=== PATIENT | female | born 1965 | race Caucasian/White ===

== ENCOUNTER 2017-11-03 10:58 | Emergency (ER) | payer SELFPAY ==
--- NOTE | 2017-11-03 11:55 | ER Document Report ---
ED Psych Disorder / Suicide <GOLDEN MORE - Last Filed: 11/03/17 14:51> - General Mode of Arrival: Ambulatory Information source: Patient, Relative TRAVEL OUTSIDE OF THE U.S. IN LAST 30 DAYS: No <KHADRA DEVINE - Last Filed: 11/03/17 20:36> - General Chief Complaint: Suicidal Ideation Stated Complaint: PYSCH EVALUATION Time Seen by Provider: 11/03/17 11:43 Notes: This 52-year-old female patient presents emergency room with a three-week history of depression and suicidal ideations. She reports she feels like everything is caving in on her. She has thought about running her vehicle off the road, wrecking into a truck or other violent ways to kill herself. She moved to this area in December 2016. Last episode she had like this was over a year ago in [place]. She was seen by psychiatry and put on medications and counseling but she said they did not seem to help. She has been on no medication for over a year. (KHADRA DEVINE) - Related Data Allergies/Adverse Reactions: No Known Allergies Allergy (Unverified 11/03/17 11:00) Past Medical History - General Information source: Patient, Relative - Social History Smoking Status: Current Every Day Smoker Cigarette use (# per day): Yes - Probably has a 28-94-wowt-year history at this time Chew tobacco use (# tins/day): No Smoking Education Provided: No Frequency of alcohol use: Drinks by herself at least 3 times a week consuming 8 beers per session Drug Abuse: None Occupation: Unemployed Lives with: Spouse/Significant other Family History: Reviewed & Not Pertinent Patient has suicidal ideation: Yes Patient has homicidal ideation: No Pulmonary Medical History: Reports: Hx COPD - Possible dx of COPD, she does admit to wheezing when she gets URI's Psychiatric Medical History: Reports: Hx Depression Past Surgical History: Reports: Hx Tonsillectomy, Hx Tubal Ligation <KHADRA DEVINE - Last Filed: 11/03/17 20:36> Review of Systems - Review of Systems Constitutional: No symptoms reported EENT: No symptoms reported Cardiovascular: No symptoms reported Respiratory: No symptoms reported Gastrointestinal: No symptoms reported Genitourinary: No symptoms reported Female Genitourinary: Post menopausal Musculoskeletal: No symptoms reported Skin: No symptoms reported Hematologic/Lymphatic: No symptoms reported Neurological/Psychological: Depression, Suicidal ideation <KHADRA DEVINE - Last Filed: 11/03/17 20:36> Physical Exam - Vital signs Interpretation: Hypertensive - General General appearance: Appears well, Alert In distress: None - HEENT Head: Normocephalic, Atraumatic Eyes: Normal Pupils: PERRL Neck: Normal - Respiratory Respiratory status: No respiratory distress Breath sounds: Normal - Cardiovascular Rhythm: Regular Heart sounds: Normal auscultation Murmur: No - Abdominal Inspection: Obese Bowel sounds: Normal Tenderness: Nontender - Back Back: Other - Does seem to be developing some kyphosis in the thoracic spine - Extremities General upper extremity: Normal inspection General lower extremity: Normal inspection - Neurological Neuro grossly intact: Yes - Psychological Associated symptoms: Depressed, Tearful - When discussing the reasons for the worsening of her symptoms - Skin Skin Temperature: Warm Skin Moisture: Dry Skin Color: Normal <KHADRA DEVINE - Last Filed: 11/03/17 20:36> - Vital signs Vitals: Temp Pulse Resp BP Pulse Ox 98.1 F 89 16 151/90 H 96 11/03/17 11:12 11/03/17 11:12 11/03/17 11:12 11/03/17 11:12 11/03/17 11:12 Course - Laboratory Result Diagrams: 11/03/17 11:55 11/03/17 11:55 <GOLDEN MORE - Last Filed: 11/03/17 14:51> - Laboratory Result Diagrams: 11/03/17 11:55 11/03/17 11:55 <KHADRA DEVINE - Last Filed: 11/03/17 20:36> - Vital Signs Vital signs: Temp Pulse Resp BP Pulse Ox 97.6 F 80 16 131/83 H 98 11/03/17 15:15 11/03/17 15:15 11/03/17 15:15 11/03/17 15:15 11/03/17 15:15 - Laboratory Laboratory results interpreted by ny: 11/03/17 11:55 Salicylates < 1.0 L Acetaminophen < 10 L Discharge <GOLDEN MORE - Last Filed: 11/03/17 14:51> <KHADRA DEVINE - Last Filed: 11/03/17 20:36> - Discharge Clinical Impression: Suicidal ideation Depression Qualifiers: Depression Type: unspecified Qualified Code(s): F32.9 - Major depressive disorder, single episode, unspecified Condition: Stable Disposition: HOME, SELF-CARE Additional Instructions: DEPRESSION: Your evaluation reveals that you have mental depression. While symptoms may be vague, they often include disturbance of sleep, fatigue, loss of appetite , and general loss of interest in life. While depression may be a side effect of drugs, or a reaction to a major change in your life, many cases have no known cause. If depression is acute, and related to a major loss in your life, you can expect it to clear completely with time. If you have been depressed a long time , are prone to repeated bouts of depression or low mood, or have been thinking of suicide, get help. Depression can be treated with anti-depressant medication and counselling. Long-term depression will often take a few weeks to clear, even with appropriate medication. Follow-up care is important. SUICIDAL IDEATION: Suicidal ideation is a common medical term for thoughts about suicide, which may be as detailed as a formulated plan, without the suicidal act itself. Although most people who undergo suicidal ideation do not commit suicide, some go on to make suicide attempts. The range of suicidal ideation varies greatly from fleeting to detailed planning, role playing, and unsuccessful attempts. While thoughts about suicide are common, most people do not carry out serious actions to commit suicide. Based upon your evaluation and discussion with you, we do not believe you are currently at risk to act upon your thoughts of suicide. You have agreed to return to the Emergency Department, at any time , if you feel inclined to act upon your suicidal thoughts. FOLLOW-UP CARE: You have been given a list of community providers, to include a referral to [facility], to establish care of your mental health and medication management needs. The list also includes contact information for [facility] services in the event of an imminent need. If you experience worsening or a significant change in your symptoms, notify the physician immediately or return to the Emergency Department at any time for re-evaluation. Prescriptions: Buspirone HCl [Buspar 5 mg Tablet] 1 tab PO BID #14 tab Citalopram Hydrobromide [Celexa 20 mg Tablet] 20 mg PO DAILY #7 tablet Referrals: [facility] [Provider Group] - Follow up as needed
[2017-11-03 12:26] LABS: ABSOLUTE EOSINOPHILS # (AUTO) 0.1 10^3/uL (0.0-0.6); ABSOLUTE LYMPHOCYTES (AUTO) 2.4 10^3/uL (0.5-4.7); ABSOLUTE MONOCYTES (AUTO) 0.6 10^3/uL (0.1-1.4); ABSOLUTE NEUT (AUTO) 5.8 10^3/uL (1.7-8.2); BASOPHILS % (AUTO) 0.5 % (0-2); EOSINOPHILS % (AUTO) 1.4 % (0-6); HEMATOCRIT 36.9 % (36.0-47.0); HEMOGLOBIN 12.3 g/dL (12.0-15.5); MEAN CORPUSCULAR HEMOGLOBIN 28.5 pg (27.0-33.4); MEAN CORPUSCULAR HGB CONC 33.4 g/dL (32.0-36.0); MEAN CORPUSCULAR VOLUME 85 fl (80-97); MONOCYTES % (AUTO) 7.2 % (3-13); PLATELET COUNT 359 10^3/uL (150-450); RED BLOOD COUNT 4.32 10^6/uL (3.72-5.28); RED CELL DISTRIBUTION WIDTH 12.7 % (11.5-14.0); SEGMENTED NEUTROPHILS % (AUTO) 63.9 % (42-78); TOTAL CELLS COUNTED % (AUTO) 100 %
[2017-11-03 12:48] LABS: ALANINE AMINOTRANSFERASE 36 U/L (9-52); ALBUMIN 4.9 g/dL (3.5-5.0); ALKALINE PHOSPHATASE 103 U/L (38-126); ANION GAP 15 (5-19); ASPARTATE AMINO TRANSFERASE 24 U/L (14-36); BILIRUBIN,DIRECT 0.2 mg/dL (0.0-0.4); BILIRUBIN,TOTAL 0.3 mg/dL (0.2-1.3); BLOOD UREA NITROGEN 15 mg/dL (7-20); CALCIUM 10.1 mg/dL (8.4-10.2); CARBON DIOXIDE 29 mmol/L (22-30); CHLORIDE 101 mmol/L (98-107); GLUCOSE 82 mg/dL (75-110); MAGNESIUM 2.2 mg/dL (1.6-2.3); POTASSIUM 4.4 mmol/L (3.6-5.0); SODIUM 144.7 mmol/L (137-145); TOTAL PROTEIN 7.7 g/dL (6.3-8.2)
[2017-11-03 12:51] LABS: ACETAMINOPHEN < 10 ug/mL (10-30); ALCOHOL < 10 mg/dL (NONE DETECTED); SALICYLATE < 1.0 mg/dL (2.0-20.0)
--- NOTE | 2017-11-03 13:42 | EKG REPORT ---
SEVERITY:- BORDERLINE ECG - SINUS RHYTHM BORDERLINE T ABNORMALITIES, ANTERIOR LEADS : Confirmed by: Afshin Crowley MD 03-Nov-2017 13:40:49
[2017-11-03 13:47] LABS: APPEARANCE,URINE CLEAR; BILIRUBIN,URINE NEGATIVE (NEGATIVE); COLOR,URINE STRAW; GLUCOSE, URINE NEGATIVE (NEGATIVE); KETONES,URINE NEGATIVE (NEGATIVE); LEUKOCYTE ESTERASE,URINE NEGATIVE (NEGATIVE); NITRITE,URINE NEGATIVE (NEGATIVE); PROTEIN,URINE NEGATIVE (NEGATIVE); URINE SPECIFIC GRAVITY 1.005; UROBILINOGEN,URINE NEGATIVE mg/dL (<2.0)
[2017-11-03 14:05] LABS: URINE AMPHETAMINES SCREEN NEGATIVE; URINE BARBITURATES SCREEN NEGATIVE; URINE BENZODIAZEPINES SCREEN NEGATIVE; URINE COCAINE SCREEN NEGATIVE; URINE MARIJUANA (THC) SCREEN NEGATIVE; URINE METHADONE SCREEN NEGATIVE; URINE PHENCYCLIDINE SCREEN NEGATIVE
[2017-11-03] MEDS ORDERED: ACETAMINOPHEN 325 MG TABLET PO ONE (14:05)
[2017-11-03 15:16] VITALS: BP 131/83
--- NOTE | 2017-11-04 14:31 | PSYCHOLOGICAL NOTE ---
Psych Note - Psych Note Psych Note: Reason for Consult: Suicidal Ideation Consents given: Henry Cruz, , at bedside Patient is a 52 year old woman who presented to the Emergency Department with passive suicidal ideation and feelings of depression. She reported she was driving to work when she started thinking about crashing her car into the side of the road to kill herself. The patient stated she did not want to follow through with this action so she contacted her at his work and met him. the reported this was not typical behavior for the patient so he brought her to the Emergency Department. The patient stated she was depressed and anxious and her "everyday life" was the cause of her feelings. She reported having three of her five children living in the home and expressed her relationship with her 15 year old daughter was the basis for significant stress. She stated she has dealt with depression before in her life when they lived in [place], [place] and she went to different psychiatrists and they put her on several different medications. She reported none of the medications made her feel better so she would quit taking them. She admitted she would not return to the doctors to change medications but would just stop taking them when she did not find relief for her symptoms. She denied any psychiatric hospitalizations. She stated the past year she has felt a significant increase in her depression. Within this year her pet Mayra dies, the family moved here in December of 2016, she began having to work at a job that is an hour commute away from their home and her relationship with her 15 year old daughter has began to deteriorate. She reported she found texts on her daughter's phone saying the patient was getting drunk every night and screaming at her. The patient stated the return texts from her friends were encouraging her daughter to do what she needed to do to relax which included smoking marijuana. The patient stated she didn't think her daughter was using drugs but now she wasn't so sure. The patient stated she felt like a failure as a mother and it was her job to make everyone happy and she was not accomplishing that. This party plan salesperson provided education around negative self talk and handling external pressures. Patient reported she drinks around 8 beers approximately three times a week and will smoke 5-6 cigarettes each time she is drinking. The patient reported she drinks after she gets home from work to "take the edge off the day." She reported when she gets home from work she is usually stressed out about the work day, the commute home (which currently includes night driving which she reported is hard for her) and interactions with her children in the home. She reported the children give her attitude any time she asks for them to do anything and generally "everything is an argument" with them. Patient was alert and oriented to person, place, time and circumstance. Mood was depressed with congruent affect. Patient was tearful but willing to engage with this party plan salesperson. Patient denied active suicidal/homicidal ideation, intent or plan. Patient stated she had thoughts about crashing her car while driving but denied she would follow through on the thoughts as evidenced by her contacting her when she started having the thoughts and following up at the Emergency Department. She did not appear to be responding to internal stimuli as evidenced by appropriate eye contact, maintaining conversation and staying on topic. Patient denied any auditory or visual hallucinations. No delusions or psychosis noted. Thought processes were organized and linear. Conversational speech was within normal limits for rate, tone and prosody. Intellectual abilities were estimated in the average range. Insight, judgment and impulse control were fair as evidenced by seeking help, recognizing the impact impulsive behaviors could have on her life and that of her family and willingness to adhere to the proposed treatment plan. Patients was bedside for support. Patients reported he would stay with the patient specifically for the next 24 hours but also added "as long as she feels this way." Patients stated he had no concerns for the patients safety upon discharged. He indicated they would contact the community provider when they got home to schedule an appointment and would fill the prescriptions on their way home. 1. 311 (F32.9) Unspecified Depressive Disorder 2. V61.20 (Z71.89) Parent-Child Relational Problem Impression/Plan: Patient is psychiatrically clear. Patient denied active suicidal/homicidal ideation, intent or plan. Patient is not considered a danger to herself or others. No delusions or psychosis were observed. Patient has a support system in place, with her who lives in the home. Patient agreed to follow up with a community provider. She was given a referral to [facility] as well as a list of other providers in the community. Patient was given the contact information for [facility] to utilize if needed. Medication regimen was recommended. Patient was provided a list of pharmacies where she could obtain the medications for $4. Provided education around methods to decrease negative self talk and pressures of external expectations. Patient was given resources for area detox and rehab facilities to address her alcohol use if she began to feel like her alcohol use was becoming problematic. Provided education around alcohol consumption and medication effectiveness. Consulted with Dr. Henriquez regarding the care and management of this patient. ED physician in agreement with recommendation and disposition.
== END 2017-11-03 15:10 | disposition home or self-care (01) ==
LOC: ER 10:58
DX: F32.9 Major depressive disorder, single episode, unspecified (principal); R45.851 Suicidal ideations; F17.210 Nicotine dependence, cigarettes, uncomplicated
CPT/HCPCS: 36415; 80053; 80307; 81001; 83735; 84443; 85025; 93005; 93010; 99285

== ENCOUNTER 2017-11-11 13:34 | Emergency (ER) | payer SELFPAY ==
[2017-11-11 13:46] VITALS: BP 145/79
--- NOTE | 2017-11-11 14:19 | ER Document Report ---
HPI - HPI Pain Level: Denies Notes: Patient is a 52-year-old female who presents the ED for medication refill of her BuSpar and Celexa. Patient was evaluated about 8 days ago for suicidal ideations. Patient states that she has been feeling well since then and has not had any recurrence of her suicidal nor any homicidal ideations. patient states that she is eating well and feeling well overall. Patient states that she was going to her appointment this morning when they called her and canceled the appointment due to the weather. Patient has been scheduled for 5 days from now. Patient requesting BuSpar and Celexa. She has been tolerating the medicine well without any complications. Denies any headache, fever, head injury, neck pain, changes in vision/speech/mentation/hearing, URI, sore throat , chest pain, palpitations, syncope, cough, shortness of breath, wheeze, dyspnea , abdominal pain, nausea/vomiting/diarrhea, urinary retention, dysuria, hematuria, loss of control of bowel or bladder, numbness/tingling, saddle anesthesia, muscle paralysis/weakness, or rash. - ROS Notes: REVIEW OF SYSTEMS: CONSTITUTIONAL : Denies fever, chills, or sweats. Denies recent illness. EENT: Denies eye, ear, throat, or mouth pain or symptoms. Denies nasal or sinus congestion or discharge. Denies throat, tongue, or mouth swelling or difficulty swallowing. CARDIOVASCULAR: Denies chest pain. Denies palpitations or racing or irregular heart beat. Denies ankle edema. RESPIRATORY: Denies cough, cold, or chest congestion. Denies shortness of breath, difficulty breathing, or wheezing. GASTROINTESTINAL: Denies abdominal pain or distention. Denies nausea, vomiting , or diarrhea. Denies blood in vomitus, stools, or per rectum. Denies black, tarry stools. Denies constipation. GENITOURINARY: Denies difficulty urinating, painful urination, burning, frequency, blood in urine, or discharge. MUSCULOSKELETAL: Denies back or neck pain or stiffness. Denies joint pain or swelling. SKIN: Denies rash, lesions or sores. NEUROLOGICAL: Denies confusion or altered mental status. Denies passing out or loss of consciousness. Denies dizziness or lightheadedness. Denies headache. Denies weakness or paralysis or loss of use of either side. Denies problems with gait or speech. Denies sensory loss, numbness, or tingling. Denies seizures. PSYCHIATRIC: Denies anxiety or stress. Denies depression, suicidal ideation, or homicidal ideation. ALL OTHER SYSTEMS REVIEWED AND NEGATIVE. Dictation was performed using [employer] voice recognition software Past Medical History - Social History Smoking Status: Unknown if Ever Smoked Family History: Reviewed & Not Pertinent Pulmonary Medical History: Reports: Hx COPD - Possible dx of COPD, she does admit to wheezing when she gets URI's Renal/ Medical History: Denies: Hx Peritoneal Dialysis Psychiatric Medical History: Reports: Hx Depression Past Surgical History: Reports: Hx Tonsillectomy, Hx Tubal Ligation Vertical Provider Document - CONSTITUTIONAL Agree With Documented VS: Yes Notes: PHYSICAL EXAMINATION: GENERAL: Well-appearing, well-nourished and in no acute distress. A&Ox4, answers questions appropriately. Appears well and happy. HEAD: Atraumatic, normocephalic. EYES: Pupils equal round and reactive to light, extraocular movements intact, sclera anicteric, conjunctiva are normal. NECK: Normal range of motion, supple without lymphadenopathy LUNGS: Breath sounds clear to auscultation bilaterally and equal. No wheezes rales or rhonchi. HEART: Regular rate and rhythm without murmurs, rubs, gallops. ABDOMEN: Soft, nontender, nondistended abdomen. No guarding, no rebound. No masses appreciated. Normal bowel sounds present. Extremities: No cyanosis, clubbing, or edema b/l. NEUROLOGICAL: Normal speech, normal gait. Normal sensory, motor exams PSYCH: Normal mood, normal affect. SKIN: Warm, Dry, normal turgor, no rashes or lesions noted. - INFECTION CONTROL TRAVEL OUTSIDE OF THE [place] IN LAST 30 DAYS: No - RESPIRATORY O2 Sat by Pulse Oximetry: 97 Course - Re-evaluation Re-evalutation: 11/11/17 14:30 Patient is an afebrile, well-hydrated, 52-year-old female who presents the ED for medication refill of her BuSpar and Celexa. Vitals are stable. PE is otherwise unremarkable. Patient has not had any recurrence of her SI nor any development of HI. Medications will be refilled that she has another appointment scheduled for 5 days from now. Patient is tolerating medications. Conservative measures for symptoms otherwise with close monitoring. Keep appointment that is scheduled. Return to the ED with any worsening/concerning symptoms otherwise as reviewed discharge. Patient is in agreement. - Vital Signs Vital signs: Temp Pulse Resp BP Pulse Ox 97.6 F 66 16 145/79 H 97 11/11/17 13:45 11/11/17 13:45 11/11/17 13:45 11/11/17 13:45 11/11/17 13:45 Discharge - Discharge Clinical Impression: Medication refill Condition: Stable Disposition: HOME, SELF-CARE Additional Instructions: Take medication as directed Keep appointment that is scheduled for Wednesday. Healthy diet and exercise Return to the ED with any worsening symptoms and/or development of fever, headache, chest pain, palpitations, syncope, shortness of breath, trouble breathing, abdominal pain, n/v/d, blood in stool/urine, loss of control of bowel /bladder, urinary retention, muscle weakness/paralysis, saddle anesthesia, numbness/tingling, suicidal/homicidal thoughts/ideations, or other worsening symptoms that are concerning to you. Prescriptions: Buspirone HCl [Buspar 5 mg Tablet] 1 tab PO BID #14 tab Citalopram Hydrobromide [Celexa] 1 tab PO DAILY #7 tablet Forms: Elevated Blood Pressure Referrals: [facility] [Provider Group] - Follow up as needed
== END 2017-11-11 15:05 | disposition home or self-care (01) ==
LOC: ER 13:34
DX: Z76.0 Encounter for issue of repeat prescription (principal)
CPT/HCPCS: 99281

== ENCOUNTER 2019-05-28 09:15 | Emergency (ER) | payer SELFPAY ==
[2019-05-28] MEDS ORDERED: CLINDAMYCIN 600 MG/D5W RTU 600 MG/50 ML RTUPB IV ONE (10:28)
[2019-05-28] MEDS ORDERED: ONDANSETRON HCL INJ/PF 4 MG/2 ML SDV IV ONE (10:29)
[2019-05-28] MEDS ORDERED: MORPHINE SULFATE 10 MG/ML INJ IV ONE ×2 (10:29→13:04)
[2019-05-28] MEDS ORDERED: DEXAMETHASONE SOD PHOSPHATE INJ 4 MG/1 ML VIAL IV ONE (10:30)
--- NOTE | 2019-05-28 10:30 | ER Document Report ---
ED General - General Chief Complaint: Mouth Problem Stated Complaint: FACIAL SWELLING Time Seen by Provider: 05/28/19 10:16 TRAVEL OUTSIDE OF THE [place] IN LAST 30 DAYS: No - HPI Notes: 54-year-old female to the emergency department with complaints of upper right dental pain and progressively worsening facial swelling for the past 3 days. She states that 2 weeks ago she saw her dentist, Dr. Yung, and was told she had a gum infection. She states that they blocked her, filed on her teeth, and placed her on amoxicillin. She has been using ibuprofen and Tylenol for pain control which she states has not been very helpful. She states that 3 days ago she started to notice that her pain was worsening in the right side of her face started to swell. She has been trying to apply ice to her face. However, when she woke this morning she noticed that the swelling was worse and coming up to the level of her eye with some redness to the skin. She denies any fevers or chills, drooling, chest pain, shortness of breath, difficulty swallowing, abdominal pain. Does admit to radiation of the tooth pain into her head and into her right ear. - Related Data Allergies/Adverse Reactions: No Known Allergies Allergy (Verified 05/28/19 09:16) Past Medical History - General Information source: Patient - Social History Smoking Status: Current Every Day Smoker Frequency of alcohol use: Social Drug Abuse: None Family History: Reviewed & Not Pertinent Patient has suicidal ideation: No Patient has homicidal ideation: No Pulmonary Medical History: Reports: Hx COPD - Possible dx of COPD, she does admit to wheezing when she gets URI's Renal/ Medical History: Denies: Hx Peritoneal Dialysis Psychiatric Medical History: Reports: Hx Depression Past Surgical History: Reports: Hx Tonsillectomy, Hx Tubal Ligation Review of Systems - Review of Systems Constitutional: denies: Chills, Fever EENT: See HPI, Mouth pain, Mouth swelling, Dental problem. denies: Throat pain, Difficulty swallowing, Throat swelling Cardiovascular: denies: Chest pain, Dyspnea, Syncope, Dizziness, Lightheaded Respiratory: denies: Cough, Short of breath Gastrointestinal: denies: Abdominal pain, Diarrhea, Nausea, Vomiting Genitourinary: No symptoms reported Musculoskeletal: No symptoms reported Skin: Other - Redness to the right cheek Hematologic/Lymphatic: No symptoms reported Neurological/Psychological: No symptoms reported -: Yes All other systems reviewed and negative Physical Exam - Vital signs Vitals: Temp Pulse Resp BP Pulse Ox 98.3 F 73 16 139/70 H 95 05/28/19 09:20 05/28/19 09:20 05/28/19 09:20 05/28/19 09:20 05/28/19 09:20 Interpretation: Normal - General In distress: Mild Notes: Mild pain distress, holding right side of the face - HEENT Head: Normocephalic Eyes: Normal Conjunctiva: Normal Pupils: PERRL Ears: Normal External canal: Normal Tympanic membrane: Normal Sinus: Normal Nasal: Normal Mouth/Lips: Caries - Severe dental caries throughout. There are several teeth that have been extracted. To the right upper gum there is noted edema and erythema to the gum with induration. There is no fluctuance. There is noted mild erythema to the skin of the right cheek with edema of the cheek going all the way up to under the right eye Mucous membranes: Normal Pharynx: Other - No Ludwigs angina. No: Peritonsillar abscess, Retropharyngeal abscess, Tonsillar hypertrophy, Uvular edema, Potential airway comprom. Neck: Normal - Respiratory Respiratory status: No respiratory distress Chest status: Nontender Breath sounds: Normal Chest palpation: Normal - Cardiovascular Rhythm: Regular Heart sounds: Normal auscultation Murmur: No - Abdominal Inspection: Normal Distension: No distension Bowel sounds: Normal Tenderness: Nontender Organomegaly: No organomegaly - Neurological Neuro grossly intact: Yes Cognition: Normal Orientation: AAOx4 [place] Coma Scale Eye Opening: Spontaneous [place] Coma Scale Verbal: Oriented [place] Coma Scale Motor: Obeys Commands [place] Coma Scale Total: 15 Speech: Normal Cranial nerves: Normal. 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 There is soft tissue swelling. Most likely this is a dental infection that is getting a little bit worse. Since getting clindamycin the right side of the cheek is less red. States that she is feeling much better. Will discharge home with pain control, clindamycin. We will have her stop the amoxicillin. We will have her follow with her dentist tomorrow to see if she can get close follow-up. Have encouraged her to return if any worsening symptoms such as worsening swelling, swelling under the tongue, difficulty swallowing, shortness of breath, fevers, passing out, chest pain or any other concerning symptoms. Patient and her who is bedside agree w ith the plan. - Vital Signs Vital signs: Temp Pulse Resp BP Pulse Ox 98.3 F 73 16 139/70 H 95 05/28/19 09:20 05/28/19 09:20 05/28/19 09:20 05/28/19 09:20 05/28/19 09:20 - Laboratory Result Diagrams: 05/28/19 11:08 05/28/19 11:08 Laboratory results interpreted by me: 05/28/19 05/28/19 11:08 11:08 Hgb 11.9 L Hct 35.3 L Potassium 3.5 L Discharge - Discharge Clinical Impression: Pain, dental, Dental caries, Dental infection, Facial swelling Condition: Stable Disposition: HOME, SELF-CARE Instructions: Toothache ([facility]) Additional Instructions: STOP AMOXICILLIN. START AND COMPLETE CLINDAMYCIN. TAKE PAIN MEDS. FOLLOW UP WITH YOUR DENTIST TOMORROW WITHOUT FAIL. PUSH FLUIDS. SOFT DIET. RETURN IMMEDIATELY IF INTRACTABLE VOMITING, FEVERS, WORSENING FACIAL SWELLING, UNABLE TO KEEP MEDICINES DOWN. Prescriptions: Clindamycin HCl 300 mg PO TID #30 capsule Methylprednisolone [Medrol Dosepack (4 mg/Tab) 21 Tab/Dosepak] 4 mg PO ASDIR PRN #21 tab.ds.pk PRN Reason: Oxycodone HCl/Acetaminophen [Percocet 5-325 mg Tablet] 1 tab PO ASDIR PRN #15 tab PRN Reason:
[2019-05-28 11:28] LABS: ABSOLUTE EOSINOPHILS # (AUTO) 0.1 10^3/uL (0.0-0.6); ABSOLUTE LYMPHOCYTES (AUTO) 1.3 10^3/uL (0.5-4.7); ABSOLUTE MONOCYTES (AUTO) 0.5 10^3/uL (0.1-1.4); ABSOLUTE NEUT (AUTO) 4.8 10^3/uL (1.7-8.2); BASOPHILS % (AUTO) 0.5 % (0-2); EOSINOPHILS % (AUTO) 1.5 % (0-6); HEMATOCRIT 35.3 % (36.0-47.0); HEMOGLOBIN 11.9 g/dL (12.0-15.5); LYMPHOCYTES % (AUTO) 19.6 % (13-45); MEAN CORPUSCULAR HEMOGLOBIN 28.8 pg (27.0-33.4); MEAN CORPUSCULAR HGB CONC 33.6 g/dL (32.0-36.0); MEAN CORPUSCULAR VOLUME 86 fl (80-97); MONOCYTES % (AUTO) 6.9 % (3-13); PLATELET COUNT 335 10^3/uL (150-450); RED BLOOD COUNT 4.12 10^6/uL (3.72-5.28); SEGMENTED NEUTROPHILS % (AUTO) 71.5 % (42-78); TOTAL CELLS COUNTED % (AUTO) 100 %; WHITE BLOOD COUNT 6.8 10^3/uL (4.0-10.5)
[2019-05-28 11:49] LABS: ANION GAP 11 (5-19); BLOOD UREA NITROGEN 11 mg/dL (7-20); CALCIUM 9.5 mg/dL (8.4-10.2); CARBON DIOXIDE 30 mmol/L (22-30); CHLORIDE 101 mmol/L (98-107); GLUCOSE 97 mg/dL (75-110); POTASSIUM 3.5 mmol/L (3.6-5.0)
--- NOTE | 2019-05-28 12:53 | RADIOLOGY REPORT (SQ) ---
EXAM DESCRIPTION: CT FACIAL AREA WITH COMPLETED DATE/TIME: 05/28/2019 12:31 pm REASON FOR STUDY: eval for facial infection/abscess, facial swelling COMPARISON: None. TECHNIQUE: Post contrast images through the facial bones and orbits windowed for bone and soft tissu e. Additional coronal and sagittal reconstructed images reviewed. All images stored on PACS. All CT scanners at this facility use dose modulation, iterative reconstruction, and/or weight based d osing when appropriate to reduce radiation dose to as low as reasonably achievable (ALARA). [facility]: Dose Right [facility]: CareDose [facility]: Dose Right [facility]: Teradose 4D [facility]: YouMail CONTRAST TYPE AND DOSE: contrast/concentration: Isovue 350.00 mg/ml; Total Contrast Delivered: 50.0 ml; Total Saline Delivered: 50.0 ml RENAL FUNCTION: GFR > 60. RADIATION DOSE: CT Rad equipment meets quality standard of care and radiation dose reduction techniq ues were employed. CTDIvol: 30.4 mGy. DLP: 536 mGy-cm. . LIMITATIONS: None. FINDINGS: FACIAL BONES: No fracture or bone lesion. ORBITS: Intact. No fracture. Symmetric intact globes and retroorbital soft tissues. PARANASAL SINUSES: Right maxillary mucosal thickening with mild maxillary sinus outlet occlusion. SOFT TISSUES: Right facial subcutaneous swelling without focal fluid collection or evidence for absce ss. Mild level 2 reactive adenopathy. INFERIOR BRAIN: Limited view. No acute findings. OTHER: No other significant finding. IMPRESSION: Right facial subcutaneous swelling without focal fluid collection or evidence for absces s. TECHNICAL DOCUMENTATION: JOB ID: [id number] [id number] Quality ID # [id number]: Final reports with documentation of one or more dose reduction techniques (e.g., Au tomated exposure control, adjustment of the mA and/or kV according to patient size, use of iterative reconstruction technique) 2010 [employer]- All Rights Reserved Reading location - IP/workstation name: [email or web address]
[2019-05-28 14:04] VITALS: BP 149/101
== END 2019-05-28 14:00 | disposition home or self-care (01) ==
LOC: ER 09:15
DX: K02.9 Dental caries, unspecified (principal); K04.7 Periapical abscess without sinus; R22.0 Localized swelling, mass and lump, head; F17.200 Nicotine dependence, unspecified, uncomplicated
CPT/HCPCS: 96376; 99283; 96375; 96365; 96368; 36415; 87040; 85025; 80048; 70487; J1100; J2270; J2405